=== PATIENT | female | born 1985 | race Caucasian/White ===

== ENCOUNTER 2017-07-05 09:23 | Emergency (ER) | payer MEDICAID, OTHER ==
[2017-07-05 11:46] LABS: ADD MAN DIFF? NO
[2017-07-05 11:49] LABS: WHITE BLOOD COUNT 4.8 10^3/ul (4.8-10.8)
[2017-07-05 11:49] LABS: BASOPHILS % 0.2 % (0.0-2.0); EOSINOPHILS % 0.4 % (0.0-7.0); HEMATOCRIT 40.4 % (37.0-47.0); HEMOGLOBIN 13.5 g/dl (12.0-16.0); LYMPHOCYTES # 0.8 10^3/ul (0.8-2.9); LYMPHOCYTES % 16.1 % (15.0-51.0); MEAN CORPUSCULAR HEMOGLOBIN 30.3 pg (29.0-33.0); MEAN CORPUSCULAR HGB CONC 33.4 g/dl (32.0-37.0); MEAN CORPUSCULAR VOLUME 90.6 fl (82.0-101.0); MEAN PLATELET VOLUME 10.6 fl (7.4-10.4); MONOCYTE # 0.2 10^3/ul (0.3-0.9); MONOCYTES % 4.5 % (0.0-11.0); NEUTROPHIL # 3.8 10^3/ul (1.6-7.5); NEUTROPHILS % 78.4 % (39.0-77.0); PLATELET COUNT 277 10^3/UL (140-415); RED BLOOD COUNT 4.46 10^6/ul (4.20-5.40); RED CELL DISTRIBUTION WIDTH 12.8 % (11.5-14.5)
[2017-07-05 12:09] LABS: ALANINE AMINOTRANSFERASE 29 IU/L (13-69); ALBUMIN 4.1 g/dl (3.3-4.9); ALBUMIN/GLOBULIN RATIO 0.91; ALKALINE PHOSPHATASE 91 IU/L (42-121); ANION GAP 14 (8-16); ASPARTATE AMINO TRANSFERASE 31 IU/L (15-46); BILIRUBIN,INDIRECT 0.1 mg/dl (0-1.1); BILIRUBIN,TOTAL 0.1 mg/dl (0.2-1.3); BLOOD UREA NITROGEN 10 mg/dl (7-20); CALCIUM 9.6 mg/dl (8.4-10.2); CARBON DIOXIDE 27 mmol/L (21-31); CHLORIDE 106 mmol/L (97-110); CREATINE KINASE 22 IU/L (23-200); CREATININE 0.53 mg/dl (0.44-1.00); GLUCOSE 90 mg/dl (70-220); POTASSIUM 4.3 mmol/L (3.5-5.1); SODIUM 143 mmol/L (135-144); TOTAL PROTEIN 8.6 g/dl (6.1-8.1)
== END 2017-07-05 12:51 | disposition home or self-care (01) ==
LOC: FTE 09:23
DX: J06.9 Acute upper respiratory infection, unspecified (principal)
CPT/HCPCS: 36415; 80053; 82550; 84703; 85025; 99283